=== PATIENT | female | born 1955 | race Hispanic/Latino ===

== ENCOUNTER 2022-10-23 00:51 | Emergency (ER) | payer OTHER, MEDICARE ==
[~2022-10-23] VITALS: Ht 152.4 cm; Wt 56.7 kg
[2022-10-23] MEDS ORDERED: MELO10CA3 PO (02:01)
[2022-10-23] MEDS ORDERED: LOSA100T59 PO (02:01)
[2022-10-23] MEDS ORDERED: AMLO-258 PO (02:01)
[2022-10-23] MEDS ORDERED: HYDR25TA PO (02:01)
[2022-10-23 02:10] LABS: BASOPHILS % (AUTO) 0.2 % (0.0-5.0); EOSINOPHILS % (AUTO) 3.7 % (0.0-8.0); HEMATOCRIT 34.1 % (36-48); LYMPHOCYTES % (AUTO) 25.1 % (21.0-51.0); MEAN CORPUSCULAR HEMOGLOBIN 26.6 pg (27.0-33.0); MEAN CORPUSCULAR HGB CONC 32.8 g/dL (32.0-36.0); MONOCYTES % (AUTO) 7.9 % (3.0-13.0); NEUTROPHILS % (AUTO) 62.8 % (40.0-77.0); PLATELET COUNT (AUTO) 258 K/uL (130-400); RED BLOOD CELL COUNT(AUTO) 4.21 MIL/uL (4.00-5.50); RED CELL DISTRIBUTION WIDTH 13.1 % (11.0-15.5)
[2022-10-23 02:21] LABS: CREATININE 0.6 mg/dL (0.5-1.5); POTASSIUM 3.3 mmol/L (3.5-5.1)
[2022-10-23 02:25] LABS: TOTAL PROTEIN, SERUM 7.2 g/dL (6.0-8.3)
[2022-10-23] MEDS ORDERED: CLONIDINE HCL 0.1 MG TABLET PO ONE (03:30)
[2022-10-23 03:36] LABS: INR 0.93 (0.85-1.15); PROTHROMBIN TIME 10.1 SEC (9.6-11.6)
[2022-10-23 03:38] LABS: CREATINE KINASE, TOTAL 34 U/L (21-232); LDL DIRECT 97 mg/dL (0-99); PARTIAL THROMBOPLASTIN TIME 25.1 SEC (26.3-35.5)
[2022-10-23] MEDS ORDERED: IOHEXOL 350 MG/ML 100ML INFUS..BTL IV ONE (03:55)
[2022-10-23 04:39] LABS: APPEARANCE,URINE CLEAR (CLEAR); BILIRUBIN,URINE NEGATIVE (NEGATIVE); COLOR,URINE COLORLESS (YELLOW); GLUCOSE, URINE (UA) NEGATIVE (NEGATIVE); KETONES,URINE NEGATIVE (NEGATIVE); LEUKOCYTE ESTERASE ,URINE NEGATIVE Leu/uL (NEGATIVE); NITRATE,URINE NEGATIVE (NEGATIVE); OCCULT BLOOD,URINE NEGATIVE (NEGATIVE); PH,URINE 6.5 (5.0-8.0); PROTEIN,URINE NEGATIVE (NEGATIVE); UROBILINOGEN,URINE 0.2 mg/dL (0.2-1.0)
[2022-10-23 05:16] VITALS: BP 133/70
== END 2022-10-23 05:39 | disposition home or self-care (01) ==
LOC: EDH 00:51
DX: I10 Essential (primary) hypertension (principal); H53.8 Other visual disturbances; E78.00 Pure hypercholesterolemia, unspecified; G45.9 Transient cerebral ischemic attack, unspecified; Z79.899 Other long term (current) drug therapy
CPT/HCPCS: 99285; 70496; 71045; 82550; 83721; 84484 ×2; 80053; 83880; 85025; 85610; 85730; 82948; 81003; 36415; 93005; 70498; 70450; Q9967

== ENCOUNTER → 2023-10-24 | Outpatient (CLI) | payer OTHER, MEDICARE ==
[~2023-10-24] MED LIST: AMLO-258 PO; HYDR25TA PO; LOSA100T59 PO; MELO10CA3 PO
== END | disposition home or self-care (01) ==
LOC: RAH 10:48
PROVIDERS: ATTEND Internal Medicine
DX: M81.0 Age-related osteoporosis without current pathological fracture (principal)
CPT/HCPCS: 77080